=== PATIENT | female | born 1960 | race Caucasian/White ===

== ENCOUNTER 2023-06-04 08:21 | Inpatient (IN) | payer MEDICARE, OTHER ==
[2023-06-04] VITALS (7 sets, daily range): BP systolic 134–144; BP diastolic 72–86; TEMP 96.8–98.2; O2SAT 93–99
[~2023-06-04] VITALS: Ht 162.6 cm; Wt 87.7 kg
[2023-06-04] MEDS ORDERED: MAGN250T2 PO (10:12)
[2023-06-04] MEDS ORDERED: EVOL140S2 SQ (10:12)
[2023-06-04] MEDS ORDERED: [UNRECOGNIZED DRUG - OTHER] PO (10:12)
[2023-06-04] MEDS ORDERED: CARV3.122 PO (10:12)
[2023-06-04] MEDS ORDERED: ASPI-1420 PO (10:12)
[2023-06-04] MEDS ORDERED: UBIQ200C PO (10:12)
[2023-06-04] MEDS ORDERED: CINSULIN PO (10:12)
[2023-06-04] MEDS ORDERED: LOSA50TA39 PO (10:12)
[2023-06-04] MEDS ORDERED: CHOL100043 PO (10:12)
[2023-06-04] MEDS ORDERED: [UNRECOGNIZED DRUG - OTHER] PO (10:12)
[2023-06-04] MEDS ORDERED: TURM500C9 PO (10:12)
[2023-06-04] MEDS ORDERED: dexaMETHasone SOD PHOSPHATE 10 MG/ML VIAL ONE (10:53)
[2023-06-04] MEDS ORDERED: VANCOMYCIN 1 GM VIAL ONE (10:53)
[2023-06-04] MEDS ORDERED: BUPIVACAINE MPF 0.5% W/EPI INJ 30 ML VIAL ONE (10:55)
[2023-06-04] MEDS ORDERED: IV NS 0.9% 1,000 ML IV PRN (14:30)
[2023-06-04] MEDS ORDERED: HYDROMORPHONE 1 MG/1 ML DISP.SYRIN IV PRN (14:30)
[2023-06-04] MEDS ORDERED: ACETAMINOPHEN 325 MG TABLET PO PRN (14:30)
[2023-06-04] MEDS ORDERED: ONDANSETRON HCL/PF 4 MG/2 ML VIAL IV PRN (14:30)
[2023-06-04] MEDS ORDERED: MAGNESIUM HYDROXIDE 30 ML UDC PO PRN (16:00)
[2023-06-04] MEDS ORDERED: MORPHINE SULFATE INJ 4 MG/ML DISP.SYRIN IV PRN (17:30)
[2023-06-04] MEDS ORDERED: MAGNESIUM OXIDE 400 MG TABLET PO SCH (18:00)
[2023-06-04] MEDS: CARVEDILOL 3.125 MG TABLET PO SCH (18:12)
[2023-06-04] MEDS: MENTHOL/CETYLPYRD (CEPACOL) 1 LOZ LOZENGE PO PRN (18:29)
[2023-06-04] MEDS: LOSARTAN POTASSIUM 50 MG TABLET PO SCH ×2 (22:00→23:06)
[2023-06-04] MEDS: VANCOMYCIN 1 GM in IV D5W 250ml IV SCH (23:54)
[2023-06-05] MEDS: MENTHOL/CETYLPYRD (CEPACOL) 1 LOZ LOZENGE PO PRN (01:25)
[2023-06-05] MEDS ORDERED: PANTOPRAZOLE 40 MG TABLET.DR PO SCH (07:30)
[2023-06-05 07:51] LABS: HEMATOCRIT 41 % (33-45); HEMOGLOBIN 13.6 g/dL (11.5-14.8); LYMPHOCYTES # (AUTO) 1.1 K/uL (0.8-4.8); LYMPHOCYTES % (AUTO) 7.5 % (20.0-44.0); MEAN CORPUSCULAR HEMOGLOBIN 29 PG (26.0-33.0); MEAN CORPUSCULAR HGB CONC 33 g/dl (31.0-36.0); MEAN CORPUSCULAR VOLUME 90 fL (82-100); MONOCYTES # (AUTO) 0.9 K/uL (0.1-1.30); MONOCYTES % (AUTO) 6.4 % (2.0-12.0); NEUTROPHILS # (AUTO) 12.8 K/uL (1.8-8.9); NEUTROPHILS % (AUTO) 86.1 % (43.0-81.0); PLATELET COUNT (AUTO) 271 K/uL (150-450); RED BLOOD CELL COUNT(AUTO) 4.62 MIL/uL (4.0-5.2); RED CELL DISTRIBUTION WIDTH 14.1 % (11.5-15.0); WHITE BLOOD COUNT (AUTO) 14.9 K/uL (4.3-11.0)
[2023-06-05 07:54] LABS: CALCIUM, SERUM 9.5 mg/dL (8.5-10.1); CREATININE 0.6 mg/dL (0.6-1.3); MAGNESIUM 2.3 mg/dL (1.8-2.4); PHOSPHORUS 3.3 mg/dL (2.5-4.9)
[2023-06-05] MEDS ORDERED: LOSARTAN POTASSIUM 50 MG TABLET PO SCH (09:00)
[2023-06-05] MEDS ORDERED: CHOLECALCIFEROL 1,000 UNIT TABLET (VIT D3) PO SCH (09:00)
[2023-06-05 09:03] VITALS: BP 141/79
[2023-06-05] MEDS: CARVEDILOL 3.125 MG TABLET PO SCH (09:03)
[2023-06-05] MEDS: VANCOMYCIN 1 GM in IV D5W 250ml IV SCH (11:22)
== END 2023-06-05 13:46 | disposition home or self-care (01) | DRG 908 ==
LOC: DS 08:21 → MED 08:55
PROVIDERS: ADMIT Nurse Practitioner Family; ATTEND Nurse Practitioner Family
PROC: 0NUV07Z Supplement Left Mandible with Autologous Tissue Substitute, Open Approach (ICD-10-PCS; principal; 2023-06-04)
PROC: 0NSV0ZZ Reposition Left Mandible, Open Approach (ICD-10-PCS; 2023-06-04)
PROC: 0NSR0ZZ Reposition Maxilla, Open Approach (ICD-10-PCS; 2023-06-04)
PROC: 0NUR07Z Supplement Maxilla with Autologous Tissue Substitute, Open Approach (ICD-10-PCS; 2023-06-04)
PROC: 09BQ0ZZ Excision of Right Maxillary Sinus, Open Approach (ICD-10-PCS; 2023-06-04)
PROC: 0NBV0ZX Excision of Left Mandible, Open Approach, Diagnostic (ICD-10-PCS; 2023-06-04)
DX: T86.831 Bone graft failure (principal); S02.40CA Maxillary fracture, right side, initial encounter for closed fracture; S02.609A Fracture of mandible, unspecified, initial encounter for closed fracture; J32.0 Chronic maxillary sinusitis; X58.XXXA Exposure to other specified factors, initial encounter; Y93.9 Activity, unspecified; M27.40 Unspecified cyst of jaw; D16.4 Benign neoplasm of bones of skull and face; M27.2 Inflammatory conditions of jaws; D72.829 Elevated white blood cell count, unspecified; E78.5 Hyperlipidemia, unspecified; F17.210 Nicotine dependence, cigarettes, uncomplicated; I10 Essential (primary) hypertension; I25.10 Atherosclerotic heart disease of native coronary artery without angina pectoris; Z95.5 Presence of coronary angioplasty implant and graft; Z95.1 Presence of aortocoronary bypass graft; Y83.8 Other surgical procedures as the cause of abnormal reaction of the patient, or of later complication, without mention of misadventure at the time of the procedure; Y92.009 Unspecified place in unspecified non-institutional (private) residence as the place of occurrence of the external cause
CPT/HCPCS: 36415; 80048-TC; 83735-TC; 84100-TC; 85025-TC; 87081-TC; A4223; C1713; G0378; J0330; J0461; J0690; J1100; J1885; J2704; J3370; J3490; J7030; J7060

== ENCOUNTER 2024-01-13 06:14 | Inpatient (IN) | payer MEDICARE, OTHER ==
[~2024-01-13] VITALS: Ht 162.6 cm; Wt 86.6 kg
[~2024-01-13 06:14] MED LIST: ASPI-1420 PO; CARV3.122 PO; CHOL100043 PO; CINSULIN PO; EVOL140S2 SQ; LOSA50TA39 PO; MAGN250T2 PO; TURM500C9 PO; UBIQ200C PO; [UNRECOGNIZED DRUG - OTHER] PO; [UNRECOGNIZED DRUG - OTHER] PO
[2024-01-13] MEDS ORDERED: ANESTHESIA TRAY IN PYXIS 1 EA TRAY MC ONE ×2 (06:58→14:03)
[2024-01-13] MEDS ORDERED: dexaMETHasone SOD PHOSPHATE 2 ML ONE (06:58)
[2024-01-13] MEDS ORDERED: OXYMETAZOLINE HCL NASAL SPRAY 30 ML BOTTLE NS ONE (06:58)
[2024-01-13] MEDS ORDERED: VANCOMYCIN 1 GM VIAL ONE (06:58)
[2024-01-13] MEDS ORDERED: MIDAZOLAM HCL 2 MG/2ML VIAL ONE (07:01)
[2024-01-13] MEDS ORDERED: ROCURONIUM BROMIDE 50 MG/5 ML ONE (07:01)
[2024-01-13] MEDS ORDERED: FENTANYL PF 100MCG/2ML AMPUL ONE (07:01)
[2024-01-13] MEDS ORDERED: FAMOTIDINE/PF INJ 20 MG/2 ML VIAL IV ONE (07:02)
[2024-01-13] MEDS ORDERED: LIDOCAINE 2% JEL UROJET 10 ML MM ONE (07:02)
[2024-01-13] MEDS ORDERED: NOREPINEPHRINE 4 MG/4 ML AMPUL IV ONE (07:02)
[2024-01-13] MEDS ORDERED: VASOPRESSIN INJ 20 UNIT/ML VIAL ONE (07:02)
[2024-01-13] MEDS ORDERED: BUPIVACAINE 0.25% 75 MG/30 ML VIAL ONE (07:10)
[2024-01-13] MEDS ORDERED: SEMA0.25 SQ (10:49)
[2024-01-13] MEDS ORDERED: ESOM40CA52 PO (10:49)
[2024-01-13] MEDS ORDERED: AMOX1TAB16 PO (10:49)
[2024-01-13] MEDS ORDERED: ONDANSETRON HCL/PF 4 MG/2 ML VIAL IVP PRN (11:30)
[2024-01-13] MEDS ORDERED: HYDROMORPHONE 1 MG/1 ML DISP.SYRIN IV PRN (12:00)
[2024-01-13] MEDS: IV NS 0.9% 1,000 ML IV PRN (12:41)
[2024-01-13] MEDS ORDERED: MAG HYDROX/AL HYDROX/SIMETH 30 ML UDC PO PRN (13:00)
[2024-01-13] MEDS ORDERED: MAGNESIUM HYDROXIDE 30 ML UDC PO PRN (13:00)
[2024-01-13] MEDS: ACETAMINOPHEN 325 MG TABLET PO PRN (15:19)
[2024-01-13 16:00] VITALS: BP 146/76; TEMP 97.7; O2SAT 98
[2024-01-13] MEDS: CARVEDILOL 3.125 MG TABLET PO SCH (17:31)
[2024-01-13] MEDS: VANCOMYCIN 1 GM in IV D5W 250ml IV SCH (17:32)
[2024-01-13 20:00] VITALS: BP 113/67; TEMP 98.4; O2SAT 96
[2024-01-14 06:13] VITALS: O2SAT 98
[2024-01-14 06:35] LABS: BASOPHILS % (AUTO) 0.2 % (0.0-2.0); HEMATOCRIT 42 % (33-45); HEMOGLOBIN 14.2 g/dL (11.5-14.8); LYMPHOCYTES # (AUTO) 1.3 K/uL (0.8-4.8); LYMPHOCYTES % (AUTO) 11.1 % (20.0-44.0); MEAN CORPUSCULAR HEMOGLOBIN 31 PG (26.0-33.0); MEAN CORPUSCULAR HGB CONC 34 g/dl (31.0-36.0); MEAN CORPUSCULAR VOLUME 91 fL (82-100); MONOCYTES % (AUTO) 8.2 % (2.0-12.0); NEUTROPHILS # (AUTO) 9.6 K/uL (1.8-8.9); NEUTROPHILS % (AUTO) 80.5 % (43.0-81.0); PLATELET COUNT (AUTO) 237 K/uL (150-450); RED BLOOD CELL COUNT(AUTO) 4.62 MIL/uL (4.0-5.2); RED CELL DISTRIBUTION WIDTH 13.9 % (11.5-15.0); WHITE BLOOD COUNT (AUTO) 11.9 K/uL (4.3-11.0)
[2024-01-14 07:15] LABS: CREATININE 0.8 mg/dL (0.6-1.3); MAGNESIUM 1.9 mg/dL (1.8-2.4); PHOSPHORUS 3.5 mg/dL (2.5-4.9); POTASSIUM 4.1 mmol/L (3.5-5.1)
[2024-01-14 08:22] VITALS: O2SAT 98
[2024-01-14] MEDS: NICOTINE PATCH (7MG) 7 MG PATCH.TD24 TD SCH (08:25)
[2024-01-14] MEDS: PANTOPRAZOLE 40 MG TABLET.DR PO SCH (08:26)
[2024-01-14] MEDS: CHOLECALCIFEROL 1,000 UNIT TABLET (VIT D3) PO SCH (08:26)
[2024-01-14] MEDS: ASPIRIN EC 81 MG TABLET.DR PO SCH (08:27)
[2024-01-14] MEDS: CARVEDILOL 3.125 MG TABLET PO SCH (08:27)
[2024-01-14] MEDS: LOSARTAN POTASSIUM 50 MG TABLET PO SCH (08:28)
[2024-01-14] MEDS: ATORVASTATIN 10 MG TABLET PO SCH (08:40)
[2024-01-14 09:12] VITALS: BP 129/63; TEMP 98.2; O2SAT 98
[2024-01-14] MEDS ORDERED: NICO-760 TD (10:42)
[2024-01-14] MEDS ORDERED: ATOR10TA PO (10:42)
== END 2024-01-14 13:09 | disposition home or self-care (01) | DRG 908 ==
LOC: DS 06:14 → MED 10:31
PROVIDERS: ADMIT Nurse Practitioner Family; ATTEND Nurse Practitioner Family
PROC: 0NUR07Z Supplement Maxilla with Autologous Tissue Substitute, Open Approach (ICD-10-PCS; principal; 2024-01-13)
PROC: 0NPW0JZ Removal of Synthetic Substitute from Facial Bone, Open Approach (ICD-10-PCS; principal; 2024-01-13)
PROC: 0NBV0ZZ Excision of Left Mandible, Open Approach (ICD-10-PCS; principal; 2024-01-13)
PROC: 0NSR04Z Reposition Maxilla with Internal Fixation Device, Open Approach (ICD-10-PCS; principal; 2024-01-13)
PROC: 0NUV0JZ Supplement Left Mandible with Synthetic Substitute, Open Approach (ICD-10-PCS; principal; 2024-01-13)
PROC: 0NSV04Z Reposition Left Mandible with Internal Fixation Device, Open Approach (ICD-10-PCS; principal; 2024-01-13)
PROC: 0WB30ZX Excision of Oral Cavity and Throat, Open Approach, Diagnostic (ICD-10-PCS; principal; 2024-01-13)
DX: T86.831 Bone graft failure (principal); S02.40CK Maxillary fracture, right side, subsequent encounter for fracture with nonunion; S02.609K Fracture of mandible, unspecified, subsequent encounter for fracture with nonunion; I25.10 Atherosclerotic heart disease of native coronary artery without angina pectoris; I10 Essential (primary) hypertension; M27.2 Inflammatory conditions of jaws; J32.0 Chronic maxillary sinusitis; Y83.2 Surgical operation with anastomosis, bypass or graft as the cause of abnormal reaction of the patient, or of later complication, without mention of misadventure at the time of the procedure; X58.XXXA Exposure to other specified factors, initial encounter; K13.21 Leukoplakia of oral mucosa, including tongue; Y93.9 Activity, unspecified; Y92.89 Other specified places as the place of occurrence of the external cause; D72.829 Elevated white blood cell count, unspecified; E78.5 Hyperlipidemia, unspecified; I25.2 Old myocardial infarction; Z88.9 Allergy status to unspecified drugs, medicaments and biological substances; Z95.1 Presence of aortocoronary bypass graft; F17.210 Nicotine dependence, cigarettes, uncomplicated; Z95.5 Presence of coronary angioplasty implant and graft; Z88.4 Allergy status to anesthetic agent; Z88.5 Allergy status to narcotic agent; Z88.8 Allergy status to other drugs, medicaments and biological substances; Z90.49 Acquired absence of other specified parts of digestive tract
CPT/HCPCS: 36415; 80048-TC; 82962-TC; 83735-TC; 84100-TC; 85025-TC; 88305-TC; 88311-TC; 94799-TC; A4223; G0378; J1100; J2250; J2405; J2704; J3010; J3370; J3490; J7030; J7060

== ENCOUNTER 2024-06-15 07:46 | Inpatient (IN) | payer MEDICARE, OTHER ==
[~2024-06-15] VITALS: Ht 162.6 cm; Wt 96.6 kg
[~2024-06-15 07:46] MED LIST changes: +AMOX1TAB16 PO; +ATOR10TA PO; +ESOM40CA52 PO; +NICO-760 TD; +SEMA0.25 SQ; -TURM500C9 PO; -[UNRECOGNIZED DRUG - OTHER] PO; -[UNRECOGNIZED DRUG - OTHER] PO
[2024-06-15] MEDS ORDERED: VANCOMYCIN 1 GM VIAL ONE (09:05)
[2024-06-15] MEDS ORDERED: dexaMETHasone SOD PHOSPHATE 1 ML ONE (09:05)
[2024-06-15] MEDS ORDERED: OXYMETAZOLINE HCL NASAL SPRAY 30 ML BOTTLE NS ONE (09:05)
[2024-06-15 12:00] VITALS: BP 148/84; TEMP 97.3; O2SAT 95
[2024-06-15] MEDS ORDERED: EMPA10TA PO (12:39)
[2024-06-15] MEDS: ACETAMINOPHEN 325 MG TABLET PO SCH (12:54)
[2024-06-15] MEDS ORDERED: KETOROLAC TROMETHAMINE INJ 30 MG/ML VIAL IV PRN (13:00)
[2024-06-15] MEDS ORDERED: ONDANSETRON HCL/PF 4 MG/2 ML VIAL IV PRN (13:00)
[2024-06-15] MEDS: IV NS 0.9% 1,000 ML IV PRN (13:14)
== END 2024-06-15 18:15 | disposition home or self-care (01) | DRG 497 ==
LOC: DS 07:46 → MED 11:49
PROVIDERS: ADMIT Internal Medicine; ATTEND Internal Medicine
PROC: 0NPW04Z Removal of Internal Fixation Device from Facial Bone, Open Approach (ICD-10-PCS; principal; 2024-06-15)
PROC: 0WB30ZX Excision of Oral Cavity and Throat, Open Approach, Diagnostic (ICD-10-PCS; 2024-06-15)
PROC: 0NBV0ZZ Excision of Left Mandible, Open Approach (ICD-10-PCS; 2024-06-15)
PROC: 0NBR0ZZ Excision of Maxilla, Open Approach (ICD-10-PCS; 2024-06-15)
DX: T84.69XA Infection and inflammatory reaction due to internal fixation device of other site, initial encounter (principal); M89.38 Hypertrophy of bone, other site; E11.9 Type 2 diabetes mellitus without complications; I10 Essential (primary) hypertension; Y83.8 Other surgical procedures as the cause of abnormal reaction of the patient, or of later complication, without mention of misadventure at the time of the procedure; Y92.009 Unspecified place in unspecified non-institutional (private) residence as the place of occurrence of the external cause; K12.39 Other oral mucositis (ulcerative); Z95.1 Presence of aortocoronary bypass graft; Z87.891 Personal history of nicotine dependence; Z79.84 Long term (current) use of oral hypoglycemic drugs
CPT/HCPCS: 82962-TC; 88300-TC; 88305-TC; 88311-TC; A4338; G0378; J1100; J2405; J2704; J2765; J3370; J3490; J7030